=== PATIENT | male | born 1965 | race Caucasian/White ===

== ENCOUNTER 2019-10-26 10:37 | Inpatient (IN) | payer MEDICAID ==
[~2019-10-26] VITALS: Ht 175.3 cm; Wt 109.3 kg
[~2019-10-26 10:37] MED LIST: HYDR-523 PO; KEPP500 PO; PHEN100C4 PO
[2019-10-26] MEDS ORDERED: PREDNISONE 20MG TABLET PO STA (11:04)
[2019-10-26] MEDS ORDERED: ALBUTEROL 6.7GM HFA INHALER ORI ONE (11:15)
[2019-10-26] MEDS ORDERED: IPRATROPIUM BROMIDE (0.02%) 0.5MG/2.5ML NEB HHN STA (12:04)
[2019-10-26] MEDS ORDERED: ALBUTEROL (0.083%) 2.5MG/3ML NEB HHN STA (12:04)
[2019-10-26] MEDS ORDERED: SODIUM CHLORIDE 0.9% 1,000 ML IV ONE ×2 (12:21→17:15)
[2019-10-26] MEDS ORDERED: ACETAMINOPHEN 325MG TABLET PO STA (12:21)
[2019-10-26] MEDS ORDERED: PIPERACILLIN/TAZ 3.375G PREMIX 50 ML IV ONE (12:30)
[2019-10-26] MEDS ORDERED: AZITHROMYCIN 500 MG in DEXT 5% WATER 250 ML IV ONE (12:30)
[2019-10-26 13:16] LABS: HEMATOCRIT. 45.9 % (42.0-52.0); MEAN CORPUSCULAR HEMOGLOBIN 30.4 pg (28.0-32.0); MEAN CORPUSCULAR VOLUME 87.1 fL (80.0-94.0); MEAN PLATELET VOLUME 8.3 fl (7.4-10.4); PLATELET 157 x1000/uL (130-400); RED BLOOD CELL COUNT 5.27 mill/uL (4.7-6.1); RED CELL DISTRIBUTION WIDTH 12.9 % (11.6-14.6)
[2019-10-26 13:22] LABS: CHLORIDE 106 mEq/L (98-107)
[2019-10-26 13:53] LABS: PLATELET ESTIMATE NORMAL
[2019-10-26] MEDS ORDERED: ONDA4TAB11 PO (17:06)
[2019-10-26] MEDS ORDERED: TOPUD MT (17:06)
[2019-10-26] MEDS ORDERED: ALBU18HF2 IH (17:07)
[2019-10-26] MEDS ORDERED: ONDANSETRON HCL 4MG/2ML INJ IV PRN (17:15)
[2019-10-26 18:01] VITALS: BP 112/29
[2019-10-26] MEDS ORDERED: INFLUENZA VIRUS VACCINE(AFLURIA) 0.5ML SYR IM ONE (19:00)
[2019-10-26 20:00] VITALS: BP 110/63
[2019-10-26] MEDS: LEVETIRACETAM 500MG TABLET PO SCH (20:46)
[2019-10-26] MEDS ORDERED: PHENYTOIN SODIUM EXTENDED 100MG CAPSULE PO SCH (21:00)
[2019-10-27] VITALS: BP 106/61
[2019-10-27 04:00] VITALS: BP 106/66
[2019-10-27 08:00] VITALS: BP 106/67
[2019-10-27] MEDS: LEVETIRACETAM 500MG TABLET PO SCH (08:48)
[2019-10-27 12:00] VITALS: BP 117/72
[2019-10-27] MEDS ORDERED: AZITHROMYCIN 250 MG TABLET PO SCH (14:00)
[2019-10-27] MEDS ORDERED: CEFTRIAXONE 2 G in DEXTROSE 5% WATER 50 ML IV SCH (15:00)
[2019-10-27] MEDS ORDERED: DOXY100C2 MT (16:14)
[2019-10-27] MEDS ORDERED: AMOX-424 MT (16:14)
== END 2019-10-27 16:00 | disposition home or self-care (01) | DRG 137 ==
LOC: ER 10:37 → 7EST 14:31 → ENRESERV 14:52 → CANRESERV 14:52 → ENRESERV 15:40
PROVIDERS: ADMIT Internal Medicine; ATTEND Internal Medicine
DX: U07.1 COVID-19 (principal); E87.2 Acidosis; J12.89 Other viral pneumonia; E66.01 Morbid (severe) obesity due to excess calories; J45.909 Unspecified asthma, uncomplicated; Z82.5 Family history of asthma and other chronic lower respiratory diseases; Z86.73 Personal history of transient ischemic attack (TIA), and cerebral infarction without residual deficits; Z79.899 Other long term (current) drug therapy; Z68.35 Body mass index [BMI] 35.0-35.9, adult
CPT/HCPCS: 36415; 71045; 80053; 83605; 83880; 84145; 85025; 87070; 87430; 87635; 87804; 93005; 94640; 96365; 99285; J0456; J0696; J2405; J2543; J7030; J7060; J7512

== ENCOUNTER 2020-02-26 10:24 | Emergency (ER) | payer MEDICAID ==
[~2020-02-26] VITALS: Ht 172.7 cm; Wt 100.0 kg
[~2020-02-26 10:24] MED LIST changes: +ALBU18HF2 IH; +AMOX-424 MT; +DOXY100C2 MT; +ONDA4TAB11 PO; +TOPUD MT
[2020-02-26 10:27] VITALS: BP 124/82
[2020-02-26] MEDS ORDERED: LORAZEPAM 1MG TABLET PO ONE (11:00)
== END 2020-02-26 11:55 | disposition home or self-care (01) ==
LOC: ER 10:24
DX: R06.4 Hyperventilation (principal); F41.0 Panic disorder [episodic paroxysmal anxiety]; Z79.899 Other long term (current) drug therapy
CPT/HCPCS: 99283

== ENCOUNTER 2023-09-22 10:26 | Emergency (ER) | payer MEDICAID ==
[~2023-09-22] VITALS: Ht 180.3 cm; Wt 80.0 kg
[~2023-09-22 10:26] MED LIST changes: -DOXY100C2 MT; +DOXY100C5 MT
[2023-09-22 10:30] VITALS: O2SAT 98
[2023-09-22 11:37] LABS: BASOPHILS % 0.6 % (0.0-2.0); EOSINOPHILS % 0.5 % (0.0-5.0); HEMATOCRIT. 42.4 % (42.0-52.0); HEMOGLOBIN. 14.7 g/dL (14.0-18.0); LYMPHOCYTES % 12.9 % (20.0-50.0); MEAN CORPUSCULAR HEMOGLOBIN 30.9 pg (28.0-32.0); MEAN CORPUSCULAR HGB CONC 34.6 g/dL (31.0-37.0); MEAN CORPUSCULAR VOLUME 89.3 fL (80.0-94.0); MEAN PLATELET VOLUME 7.8 fl (7.4-10.4); MONOCYTES % 5.9 % (2.0-8.0); NEUTROPHILS % 80.1 % (40.0-76.0); PLATELET 132 x1000/uL (130-400); RED BLOOD CELL COUNT 4.75 mill/uL (4.7-6.1); RED CELL DISTRIBUTION WIDTH 13.6 % (11.6-14.6); WHITE BLOOD COUNT 7.7 x1000/uL (4.5-11.0)
[2023-09-22 11:44] LABS: INR 1.1; PROTHROMBIN TIME 12.5 sec (9.6-11.0)
[2023-09-22 11:46] LABS: ALANINE AMINOTRANSFERASE 9 IU/L (10-49); ALBUMIN 4.4 g/dL (3.2-4.8); ASPARTATE AMINOTRANSFERASE 18 IU/L (<34); BILIRUBIN TOTAL 0.5 mg/dL (0.1-1.0); CALCIUM 8.5 mg/dL (8.7-10.4); CARBON DIOXIDE 27 mEq/L (21-32); CHLORIDE 104 mEq/L (98-107); GLUCOSE 137 mg/dL (70-105); POTASSIUM 3.4 mEq/L (3.5-5.1); PROTEIN TOTAL 7.7 g/dL (6.0-8.3); SODIUM 138 mEq/L (136-145); UREA NITROGEN BLOOD 6 mg/dL (9-23)
[2023-09-22 11:47] LABS: TROPONIN I HIGH SENSITIVITY < 4 ng/L (3.0-53)
[2023-09-22 11:48] LABS: TROPONIN I HIGH SENSITIVITY < 4 ng/L (3.0-53)
[2023-09-22] MEDS: ONDANSETRON 4MG ODT PO ONE (12:48)
[2023-09-22] MEDS: PANTOPRAZOLE 40MG DR TABLET PO ONE (12:49)
[2023-09-22] MEDS: PANTOPRAZOLE SODIUM 40 MG/VIAL IV ONE (12:53)
[2023-09-22] MEDS: ONDANSETRON HCL 4MG/2ML INJ IV ONE (12:53)
[2023-09-22] MEDS: MAGNESIUM/ALUMINUM HYDROXIDE/SIMETHICONE 30ML UDC PO ONE (12:53)
[2023-09-22 13:20] LABS: TROPONIN I HIGH SENSITIVITY < 4 ng/L (3.0-53)
[2023-09-22] MEDS: ACETAMINOPHEN 325MG TABLET PO ONE (13:30)
[2023-09-22] MEDS ORDERED: PROT40 MT (14:24)
[2023-09-22 15:19] LABS: CLARITY URINE CLEAR (CLEAR); COLOR URINE YELLOW (YELLOW); GLUCOSE URINE TRACE (NEGATIVE); KETONES URINE NEGATIVE (NEGATIVE); LEUKOCYTE ESTERASE URINE NEGATIVE (NEGATIVE); NITRITE URINE NEGATIVE (NEGATIVE); OCCULT BLOOD URINE NEGATIVE (NEGATIVE); PROTEIN URINE NEGATIVE (NEGATIVE); SPECIFIC GRAVITY URINE 1.014 (1.005-1.030)
[2023-09-22] MEDS ORDERED: ACET-2708 MT (15:50)
[2023-09-22 16:03] VITALS: BP_DIAS 84; PULSE 84; RESP 16; TEMP 98.8
[2023-09-22 16:04] LABS: BACTERIA URINE TRACE; RBC URINE NONE SEEN /hpf (0-2); SQUAMOUS EPITHELIAL CELL URINE RARE /lpf (RARE/1+); WBC URINE 0-2 /hpf (0-2)
[2023-09-22 16:05] VITALS: BP_SYST 156
== END 2023-09-22 16:09 | disposition home or self-care (01) ==
LOC: ER 10:34
DX: K80.20 Calculus of gallbladder without cholecystitis without obstruction (principal); J45.909 Unspecified asthma, uncomplicated
CPT/HCPCS: 80053; 81003; 83690; 85025; 85610; 84484; 36415; 71045; 76705; 93005; 96365; 96375; 99285; J2405; C9113; Z7610 ×2